=== PATIENT | female | born 1970 | race Caucasian/White ===

== ENCOUNTER 2019-10-28 17:53 | Inpatient (IN) | payer MEDICARE, MEDICAID ==
[~2019-10-28] VITALS: Ht 154.9 cm; Wt 73.0 kg
[2019-10-28 20:23] VITALS: BP 124/83
[2019-10-28] MEDS ORDERED: BISACODYL 10 MG SUPP PR PRN (21:00)
[2019-10-28] MEDS ORDERED: ONDANSETRON ODT 4 MG PO PRN (21:00)
[2019-10-28] MEDS ORDERED: DOCUSATE 100 MG CAPSULE PO PRN (21:00)
[2019-10-28] MEDS ORDERED: POLYETHYLENE GLYCOL 17 GM PACKET PO PRN (21:00)
[2019-10-28] MEDS ORDERED: NITROGLYCERIN 0.4 MG BOTTLE (25 TABS) SL PRN (21:30)
[2019-10-28] MEDS ORDERED: PLEASE ENTER ALLERGIES MC SCH (21:30)
[2019-10-28 21:47] VITALS: BP 124/83
[2019-10-28] MEDS: metFORMIN 500 MG TABLET PO SCH (22:00)
[2019-10-28] MEDS: GABAPENTIN 300 MG CAPSULE PO SCH (22:00)
[2019-10-28] MEDS: ATORVASTATIN 40 MG TABLET PO SCH (22:00)
[2019-10-28] MEDS: MIRTAZAPINE 15 MG TABLET PO SCH (22:00)
[2019-10-28 22:53] LABS: MICROSCOPIC AUTO
[2019-10-29 05:42] LABS: BASOPHILS # (AUTO) 0.05 x10^3/uL (0-0.1); BASOPHILS % (AUTO) 1 % (0-1); EOSINOPHILS # (AUTO) 0.16 x10^3/uL (0-0.4); EOSINOPHILS % (AUTO) 2 % (1-7); LYMPHOCYTES # (AUTO) 2.11 x10^3/uL (1-3.4); LYMPHOCYTES % (AUTO) 32 % (22-44); MD NO; MEAN CORPUSCULAR HEMOGLOBIN 28.2 pg (27.0-34.8); MEAN CORPUSCULAR HGB CONC 32.6 g/dL (32.4-35.8); MEAN CORPUSCULAR VOLUME 86.6 fL (80-100); MONOCYTES # (AUTO) 0.56 x10^3/uL (0.2-0.8); MONOCYTES % (AUTO) 8 % (2-9); NEUTROPHILS # (AUTO) 3.78 x10^3/uL (1.8-6.8); NEUTROPHILS % (AUTO) 57 % (42-75); PLATELET COUNT 253 x10^3/uL (130-400); RED BLOOD COUNT 3.89 x10^6/uL (3.82-5.3); RED CELL DISTRIBUTION WIDTH 15.8 % (9.6-15.2)
[2019-10-29 06:02] LABS: ALBUMIN 3.4 g/dL (3.4-5.0); CALCIUM 8.8 mg/dL (8.5-10.1); CHLORIDE 111 mmol/L (98-107)
[2019-10-29 06:29] LABS: ALANINE AMINOTRANSFERASE 35 U/L (12-78); ALKALINE PHOSPHATASE 52 U/L (45-117); ANION GAP 6 mmol/L (5-15); BILIRUBIN,TOTAL 0.3 mg/dL (0.2-1.0); CHOL/HDL RATIO 5.8; CHOLESTEROL, TOTAL 151 mg/dL (140-239); CREATININE 0.96 mg/dL (0.55-1.02); FREE T4 (FREE THYROXINE) 1.05 ng/dL (0.76-1.46); HDL CHOL % 17 % (28-40); HDL CHOLESTEROL (DIRECT) 26 mg/dL (40-60); LDL CHOLESTEROL,CALCULATED 74 mg/dL (54-169); LDL/HDL RATIO 2.8 (0.5-3.0); TOTAL PROTEIN 6.5 g/dL (6.4-8.2); TRIGLYCERIDES 255 mg/dL (50-200); VLDL CHOLESTEROL 51 mg/dL (0-25)
[2019-10-29] MEDS: ASPIRIN 81 MG TABLET EC PO SCH (06:32)
[2019-10-29] MEDS: NADOLOL 20 MG TABLET PO SCH (06:32)
[2019-10-29 07:50] VITALS: BP 116/78
[2019-10-29] MEDS: FOLIC ACID 1 MG TABLET PO SCH (08:54)
[2019-10-29] MEDS: LISINOPRIL 10 MG TABLET PO SCH (08:54)
[2019-10-29] MEDS: MAGNESIUM OXIDE 400 MG TABLET PO SCH (08:54)
[2019-10-29] MEDS: FERROUS SULFATE 325 MG TABLET PO SCH (08:54)
[2019-10-29] MEDS: CLOPIDOGREL 75 MG TABLET PO SCH (08:54)
[2019-10-29] MEDS: FENOFIBRATE 145 MG TABLET PO SCH (08:54)
[2019-10-29] MEDS: metFORMIN 500 MG TABLET PO SCH ×2 (08:55→17:23)
[2019-10-29] MEDS: APAP/CODEINE 300/30MG TABLET PO PRN (09:58)
[2019-10-29 19:50] VITALS: BP_SYST 100; BP_SYST 121; BP_DIAS 64
[2019-10-29] MEDS: ATORVASTATIN 40 MG TABLET PO SCH (19:53)
[2019-10-29] MEDS: GABAPENTIN 300 MG CAPSULE PO SCH (19:53)
[2019-10-29] MEDS: LURASIDONE 20 MG TABLET PO SCH (19:53)
[2019-10-29] MEDS: MIRTAZAPINE 15 MG TABLET PO SCH (19:53)
[2019-10-30 06:14] VITALS: BP 137/86
[2019-10-30] MEDS: NADOLOL 20 MG TABLET PO SCH (06:18)
[2019-10-30] MEDS: ASPIRIN 81 MG TABLET EC PO SCH (06:18)
[2019-10-30 07:00] VITALS: BP 110/67
[2019-10-30] MEDS: metFORMIN 500 MG TABLET PO SCH ×2 (09:21→16:21)
[2019-10-30] MEDS: FENOFIBRATE 145 MG TABLET PO SCH (09:21)
[2019-10-30] MEDS: MAGNESIUM OXIDE 400 MG TABLET PO SCH (09:21)
[2019-10-30] MEDS: LISINOPRIL 10 MG TABLET PO SCH (09:21)
[2019-10-30] MEDS: FERROUS SULFATE 325 MG TABLET PO SCH (09:21)
[2019-10-30] MEDS: CLOPIDOGREL 75 MG TABLET PO SCH (09:22)
[2019-10-30] MEDS: FOLIC ACID 1 MG TABLET PO SCH (09:22)
[2019-10-30] MEDS: APAP/CODEINE 300/30MG TABLET PO PRN (13:04)
[2019-10-30 19:54] VITALS: BP 110/69
[2019-10-30] MEDS: ATORVASTATIN 40 MG TABLET PO SCH (20:41)
[2019-10-30] MEDS: LURASIDONE 20 MG TABLET PO SCH (20:42)
[2019-10-30] MEDS: MIRTAZAPINE 15 MG TABLET PO SCH (20:42)
[2019-10-30] MEDS: GABAPENTIN 300 MG CAPSULE PO SCH (20:42)
[2019-10-30] MEDS: MELATONIN 5 MG TABLET PO SCH (20:42)
[2019-10-31] MEDS: ASPIRIN 81 MG TABLET EC PO SCH (06:00)
[2019-10-31] MEDS: NADOLOL 20 MG TABLET PO SCH (06:13)
[2019-10-31 07:37] VITALS: BP 114/81
[2019-10-31] MEDS: FENOFIBRATE 145 MG TABLET PO SCH (08:15)
[2019-10-31] MEDS: metFORMIN 500 MG TABLET PO SCH ×2 (08:15→16:49)
[2019-10-31] MEDS: FERROUS SULFATE 325 MG TABLET PO SCH (08:15)
[2019-10-31] MEDS: ACETAMINOPHEN 325 MG TABLET PO PRN (08:16)
[2019-10-31] MEDS: FOLIC ACID 1 MG TABLET PO SCH (08:16)
[2019-10-31] MEDS: MAGNESIUM OXIDE 400 MG TABLET PO SCH (08:16)
[2019-10-31] MEDS: LISINOPRIL 10 MG TABLET PO SCH (08:16)
[2019-10-31] MEDS: CLOPIDOGREL 75 MG TABLET PO SCH (08:16)
[2019-10-31] MEDS: CALCIUM CARBONATE 500 MG TAB.CHEW PO PRN (16:49)
[2019-10-31 19:36] VITALS: BP 124/73
[2019-10-31] MEDS: ATORVASTATIN 40 MG TABLET PO SCH (20:28)
[2019-10-31] MEDS: GABAPENTIN 300 MG CAPSULE PO SCH (20:28)
[2019-10-31] MEDS: MELATONIN 5 MG TABLET PO SCH (20:28)
[2019-10-31] MEDS: LURASIDONE 20 MG TABLET PO SCH (20:28)
[2019-10-31] MEDS: MIRTAZAPINE 15 MG TABLET PO SCH (20:28)
[2019-11-01] MEDS: ASPIRIN 81 MG TABLET EC PO SCH (05:52)
[2019-11-01] MEDS: NADOLOL 20 MG TABLET PO SCH (07:30)
[2019-11-01 07:51] VITALS: BP 131/62
[2019-11-01] MEDS: LISINOPRIL 10 MG TABLET PO SCH (08:17)
[2019-11-01] MEDS: FOLIC ACID 1 MG TABLET PO SCH (08:17)
[2019-11-01] MEDS: FENOFIBRATE 145 MG TABLET PO SCH (08:17)
[2019-11-01] MEDS: metFORMIN 500 MG TABLET PO SCH ×2 (08:17→17:21)
[2019-11-01] MEDS: CLOPIDOGREL 75 MG TABLET PO SCH (08:17)
[2019-11-01] MEDS: FERROUS SULFATE 325 MG TABLET PO SCH (08:17)
[2019-11-01] MEDS: ACETAMINOPHEN 325 MG TABLET PO PRN ×2 (08:18→22:28)
[2019-11-01] MEDS: MAGNESIUM OXIDE 400 MG TABLET PO SCH (08:18)
[2019-11-01] MEDS: CALCIUM CARBONATE 500 MG TAB.CHEW PO PRN ×2 (12:39→20:09)
[2019-11-01] MEDS: APAP/CODEINE 300/30MG TABLET PO PRN (12:40)
[2019-11-01] MEDS: MELATONIN 5 MG TABLET PO SCH (20:08)
[2019-11-01] MEDS: GABAPENTIN 300 MG CAPSULE PO SCH (20:08)
[2019-11-01] MEDS: LURASIDONE 20 MG TABLET PO SCH (20:08)
[2019-11-01] MEDS: MIRTAZAPINE 15 MG TABLET PO SCH (20:09)
[2019-11-01] MEDS: ATORVASTATIN 40 MG TABLET PO SCH (20:09)
[2019-11-01 20:16] VITALS: BP 112/76
[2019-11-02 05:36] VITALS: BP 107/63
[2019-11-02] MEDS: ASPIRIN 81 MG TABLET EC PO SCH (05:40)
[2019-11-02] MEDS: NADOLOL 20 MG TABLET PO SCH (05:41)
[2019-11-02] MEDS: FOLIC ACID 1 MG TABLET PO SCH (08:00)
[2019-11-02 08:07] VITALS: BP 105/72
[2019-11-02] MEDS: FERROUS SULFATE 325 MG TABLET PO SCH (09:00)
[2019-11-02] MEDS: MAGNESIUM OXIDE 400 MG TABLET PO SCH (09:46)
[2019-11-02] MEDS: LISINOPRIL 10 MG TABLET PO SCH (09:46)
[2019-11-02] MEDS: metFORMIN 500 MG TABLET PO SCH ×2 (09:47→17:07)
[2019-11-02] MEDS: ACETAMINOPHEN 325 MG TABLET PO PRN (09:56)
[2019-11-02] MEDS: CLOPIDOGREL 75 MG TABLET PO SCH (11:23)
[2019-11-02] MEDS: FENOFIBRATE 145 MG TABLET PO SCH (11:24)
[2019-11-02] MEDS: CALCIUM CARBONATE 500 MG TAB.CHEW PO PRN ×2 (16:00→20:15)
[2019-11-02] MEDS: NICOTINE 7 MG/24 HR PATCH.TD24 TD SCH (20:15)
[2019-11-02] MEDS: GABAPENTIN 300 MG CAPSULE PO SCH (20:15)
[2019-11-02] MEDS: LURASIDONE 20 MG TABLET PO SCH (20:15)
[2019-11-02] MEDS: ATORVASTATIN 40 MG TABLET PO SCH (20:15)
[2019-11-02] MEDS: MIRTAZAPINE 15 MG TABLET PO SCH (20:15)
[2019-11-02] MEDS: MELATONIN 5 MG TABLET PO SCH (20:15)
[2019-11-02 20:17] VITALS: BP 128/84
[2019-11-02] MEDS: APAP/CODEINE 300/30MG TABLET PO PRN (21:41)
[2019-11-03 05:17] VITALS: BP 126/78
[2019-11-03] MEDS: NADOLOL 20 MG TABLET PO SCH (05:20)
[2019-11-03] MEDS: ASPIRIN 81 MG TABLET EC PO SCH (05:20)
[2019-11-03 07:20] VITALS: BP 123/75
[2019-11-03] MEDS: FENOFIBRATE 145 MG TABLET PO SCH (08:12)
[2019-11-03] MEDS: MAGNESIUM OXIDE 400 MG TABLET PO SCH (08:13)
[2019-11-03] MEDS: FERROUS SULFATE 325 MG TABLET PO SCH (08:13)
[2019-11-03] MEDS: metFORMIN 500 MG TABLET PO SCH ×2 (08:13→17:08)
[2019-11-03] MEDS: FOLIC ACID 1 MG TABLET PO SCH (08:14)
[2019-11-03] MEDS: LISINOPRIL 10 MG TABLET PO SCH (08:14)
[2019-11-03] MEDS: CLOPIDOGREL 75 MG TABLET PO SCH (08:14)
[2019-11-03] MEDS: NICOTINE 7 MG/24 HR PATCH.TD24 TD SCH (17:09)
[2019-11-03] MEDS: CALCIUM CARBONATE 500 MG TAB.CHEW PO PRN (18:45)
[2019-11-03] MEDS: APAP/CODEINE 300/30MG TABLET PO PRN (19:45)
[2019-11-03 19:54] VITALS: BP 108/73
[2019-11-03] MEDS: ATORVASTATIN 40 MG TABLET PO SCH (21:20)
[2019-11-03] MEDS: GABAPENTIN 300 MG CAPSULE PO SCH (21:20)
[2019-11-03] MEDS: MELATONIN 5 MG TABLET PO SCH (21:20)
[2019-11-03] MEDS: LURASIDONE 20 MG TABLET PO SCH (21:21)
[2019-11-03] MEDS: MIRTAZAPINE 15 MG TABLET PO SCH (21:21)
[2019-11-04] MEDS: NADOLOL 20 MG TABLET PO SCH (06:13)
[2019-11-04] MEDS: ASPIRIN 81 MG TABLET EC PO SCH (06:13)
[2019-11-04 07:32] VITALS: BP 106/69
[2019-11-04] MEDS: FENOFIBRATE 145 MG TABLET PO SCH (08:51)
[2019-11-04] MEDS: metFORMIN 500 MG TABLET PO SCH ×2 (08:51→16:11)
[2019-11-04] MEDS: FOLIC ACID 1 MG TABLET PO SCH (08:52)
[2019-11-04] MEDS: MAGNESIUM OXIDE 400 MG TABLET PO SCH (08:52)
[2019-11-04] MEDS: LISINOPRIL 10 MG TABLET PO SCH (08:52)
[2019-11-04] MEDS: CLOPIDOGREL 75 MG TABLET PO SCH (08:52)
[2019-11-04] MEDS: FERROUS SULFATE 325 MG TABLET PO SCH (08:52)
[2019-11-04] MEDS: APAP/CODEINE 300/30MG TABLET PO PRN (08:57)
[2019-11-04] MEDS: ACETAMINOPHEN 325 MG TABLET PO PRN ×2 (12:20→20:44)
[2019-11-04] MEDS: CALCIUM CARBONATE 500 MG TAB.CHEW PO PRN (16:11)
[2019-11-04] MEDS: NICOTINE 7 MG/24 HR PATCH.TD24 TD SCH (18:01)
[2019-11-04 19:26] VITALS: BP 115/68
[2019-11-04] MEDS: MELATONIN 5 MG TABLET PO SCH (20:44)
[2019-11-04] MEDS: GABAPENTIN 300 MG CAPSULE PO SCH (20:44)
[2019-11-04] MEDS: ATORVASTATIN 40 MG TABLET PO SCH (20:44)
[2019-11-04] MEDS: MIRTAZAPINE 15 MG TABLET PO SCH (20:45)
[2019-11-04] MEDS: LURASIDONE 20 MG TABLET PO SCH (20:48)
[2019-11-05 06:07] VITALS: BP 118/68
[2019-11-05] MEDS: ASPIRIN 81 MG TABLET EC PO SCH (06:11)
[2019-11-05] MEDS: NADOLOL 20 MG TABLET PO SCH (06:11)
[2019-11-05 07:00] VITALS: BP 125/79
[2019-11-05] MEDS: FENOFIBRATE 145 MG TABLET PO SCH (08:51)
[2019-11-05] MEDS: FOLIC ACID 1 MG TABLET PO SCH (08:51)
[2019-11-05] MEDS: metFORMIN 500 MG TABLET PO SCH (08:51)
[2019-11-05] MEDS: MAGNESIUM OXIDE 400 MG TABLET PO SCH (08:51)
[2019-11-05] MEDS: CLOPIDOGREL 75 MG TABLET PO SCH (08:52)
[2019-11-05] MEDS: APAP/CODEINE 300/30MG TABLET PO PRN (08:52)
[2019-11-05] MEDS: FERROUS SULFATE 325 MG TABLET PO SCH (08:52)
[2019-11-05] MEDS: LISINOPRIL 10 MG TABLET PO SCH (08:54)
[2019-11-05] MEDS ORDERED: FENO145T19 PO (09:58)
[2019-11-05] MEDS ORDERED: CLOP75TA PO (09:58)
[2019-11-05] MEDS ORDERED: NADO20TA12 PO (09:58)
[2019-11-05] MEDS ORDERED: LURA20TA PO (09:58)
[2019-11-05] MEDS ORDERED: MIRT-34 PO (09:58)
[2019-11-05] MEDS ORDERED: FOLI-17 PO (09:58)
[2019-11-05] MEDS ORDERED: MELA5TAB14 PO (09:58)
[2019-11-05] MEDS ORDERED: NICO-485 TD (09:58)
[2019-11-05] MEDS ORDERED: METF500T PO (09:58)
[2019-11-05] MEDS ORDERED: ASPI81TA45 PO (09:58)
[2019-11-05] MEDS ORDERED: FERR-51 PO (09:58)
[2019-11-05] MEDS ORDERED: LISI-167 PO (09:58)
[2019-11-05] MEDS ORDERED: ATOR40TA78 PO (09:58)
[2019-11-05] MEDS ORDERED: GABA300C PO (09:58)
[2019-11-05] MEDS ORDERED: MAGN400T50 PO (09:58)
== END 2019-11-05 11:40 | disposition home health service (06) | DRG 885 ==
LOC: 3E 20:03
PROVIDERS: ADMIT Psychiatry & Neurology Psychosomatic Medicine; ATTEND Psychiatry & Neurology Psychosomatic Medicine
DX: F33.3 Major depressive disorder, recurrent, severe with psychotic symptoms (principal); E11.40 Type 2 diabetes mellitus with diabetic neuropathy, unspecified; D50.9 Iron deficiency anemia, unspecified; I10 Essential (primary) hypertension; G89.29 Other chronic pain; G47.00 Insomnia, unspecified; E78.5 Hyperlipidemia, unspecified; E66.9 Obesity, unspecified; I25.10 Atherosclerotic heart disease of native coronary artery without angina pectoris; J44.9 Chronic obstructive pulmonary disease, unspecified; Z79.82 Long term (current) use of aspirin; Z79.84 Long term (current) use of oral hypoglycemic drugs; Z79.899 Other long term (current) drug therapy; Z87.891 Personal history of nicotine dependence; Z95.0 Presence of cardiac pacemaker; Z88.2 Allergy status to sulfonamides
CPT/HCPCS: 36415; 71045; 80053; 80061; 81001; 82607; 84439; 84443; 85025; 93005